=== PATIENT | male | born 2000 | race Two or more races ===

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

== ENCOUNTER 2022-01-21 23:19 | Emergency (ER) | payer MEDICAID ==
[~2022-01-21] VITALS: Ht 180.3 cm; Wt 95.5 kg
[2022-01-21 23:48] VITALS: BP 145/72
[2022-01-22 01:09] LABS: Urine Bacteria NONE SEEN /hpf (None Seen); Urine Blood 2+ /uL (Negative); Urine Mucus FEW (None Seen); Urine Specific Gravity 1.026 (1.001-1.035); Urine WBC 2171 /hpf (0 - 3); Urine WBC Clumps PRESENT /hpf (None Seen)
[2022-01-22] MEDS ORDERED: CEPH-510 PO (01:19)
== END 2022-01-22 01:24 | disposition home or self-care (01) ==
LOC: ER 23:19
DX: N39.0 Urinary tract infection, site not specified (principal); Z79.899 Other long term (current) drug therapy
CPT/HCPCS: 81001